=== PATIENT | female | born 1980 | race Caucasian/White ===

== ENCOUNTER 2016-08-26 00:42 | Emergency (ER) | payer MEDICAID ==
--- NOTE | 2016-08-26 01:13 | ED PDOC ---
Arrival/HPI - General Historian: Patient - History of Present Illness Time/Duration: < week (4 days) Symptom Onset: Gradual Symptom Course: Unchanged Activities at Onset: Rest, Light Context: Home - General Time Seen by Provider: 08/26/16 01:10 - History of Present Illness Narrative History of Present Illness (Text): 08/26/16 01:13 Angela Deras is a 36 year old female who presents to the Emergency department complaining of a persistent cough and cold-like symptoms for the past 4 days. Patient states she was seen by her PMD for similar complaints and placed on cough medicine and antibiotics, but denies any significant relief. Patient also reports associated intermittent fever. Patient denies any chest pain, shortness of breath, nausea, vomiting, diarrhea, urinary symptoms, back pain, neck pain, headache, dizziness, or any other complaints. (Carlos Ramos) Past Medical History - Provider Review Nursing Documentation Reviewed: Yes - Infectious Disease Hx of Infectious Diseases: None - Tetanus Immunization Tetanus Immunization: Unknown - Cardiac Hx Hypertension: Yes - Psychiatric Hx Depression: No Hx Emotional Abuse: No Hx Physical Abuse: No Hx Substance Use: No - Past Surgical History Past Surgical History: No Previous - Suicidal Assessment Feels Threatened In Home Enviroment: No Family/Social History - Physician Review Nursing Documentation Reviewed: Yes Family/Social History: No Known Family HX Hx Alcohol Use: No Hx Substance Use: No Hx Substance Use Treatment: No Allergies/Home Meds Allergies/Adverse Reactions: Allergies No Known Allergies Allergy (Verified 08/26/16 01:10) Home Medications: Home Meds Medication Instructions Recorded Confirmed Azithromycin [Zithromax] 250 mg PO DAILY 08/26/16 08/26/16 Guaifenesin [Mucinex ER] 600 mg PO Q12 08/26/16 08/26/16 Ibuprofen [Motrin Tab] 800 mg PO Q12 08/26/16 08/26/16 Loratadine [Allerclear] 10 mg PO DAILY 08/26/16 08/26/16 Review of Systems - Physician Review All systems were reviewed & negative as marked: Yes - Review of Systems Constitutional: Fevers Eyes: Normal ENT: Other (+cold-like symptoms) Respiratory: Cough Cardiovascular: Normal Gastrointestinal: Normal. absent: Abdominal Pain, Diarrhea, Vomiting Genitourinary Female: Normal. absent: Dysuria, Frequency, Hematuria, Urine Output Changes Musculoskeletal: Normal. absent: Back Pain, Neck Pain Skin: Normal. absent: Rash Neurological: Normal. absent: Headache, Dizziness Endocrine: Normal Hemo/Lymphatic: Normal Psychiatric: Normal Physical Exam Vital Signs Reviewed: Yes Temperature: Febrile Blood Pressure: Normal Pulse: Regular Respiratory Rate: Normal Appearance: Positive for: Well-Appearing, Non-Toxic, Comfortable Pain Distress: None Mental Status: Positive for: Alert and Oriented X 3 - Systems Exam Head: Present: Atraumatic, Normocephalic Pupils: Present: PERRL Extroacular Muscles: Present: EOMI Conjunctiva: Present: Normal Mouth: Present: Moist Mucous Membranes Neck: Present: Normal Range of Motion Respiratory/Chest: Present: Rhonchi. No: Respiratory Distress, Accessory Muscle Use Cardiovascular: Present: Regular Rate and Rhythm, Normal S1, S2. No: Murmurs Abdomen: Present: Normal Bowel Sounds. No: Tenderness, Distention, Peritoneal Signs Back: Present: Normal Inspection Upper Extremity: Present: Normal Inspection. No: Cyanosis, Edema Lower Extremity: Present: Normal Inspection. No: Edema Neurological: Present: GCS=15, CN II-XII Intact, Speech Normal Skin: Present: Warm, Dry, Normal Color. No: Rashes Psychiatric: Present: Alert, Oriented x 3, Normal Insight, Normal Concentration Vital Signs Temp Pulse Resp BP Pulse Ox 08/26/16 03:15 85 18 114/65 97 08/26/16 01:10 99.9 F H 118 H 20 158/100 H 96 Medical Decision Making - Lab Interpretations I have reviewed the lab results: Yes ED Course and Treatment: 08/26/16 17:42 Official chest xray show there is pneumonia, no antibiotic, spoke to the patient and she is not on the antibiotic, I will eRX levaquin 750mg po qd x 5 days which I explained to the patient to avoid gym or exercise for 7 days and stay hydrated as the side effect of the levaquin is achilles tendon rupture. Urine hcg negative. (Fam Stearns) 08/26/16 01:13 Impression: 36 year old female complaining of cough/cold-like symptoms x4 days. Differential Diagnosis include but are not limited to: bronchitis vs. URI Plan: -- Labs -- Urinalysis -- Duoneb -- Phenergan -- Reassess and disposition Progress Notes: 08/26/16 03:33 Reviewed radiology, Chest X-ray shows no active disease. 08/26/16 03:38 On re-evaluation, the patient feels better and is in no acute distress. I have discussed the results and plan with the patient, who expresses understanding. Patient in agreement with plan to discharged home. Patient is stable for discharge. Patient was instructed to follow up with physician/clinic in 1-2 days or return if symptoms worsen or new concerning symptoms arise. (Carlos Ramos) - Lab Interpretations Lab Results: 08/26/16 02:13 08/26/16 02:13 Lab Results 08/26/16 02:39: Urine Color Yellow, Urine Appearance Slight-cloudy, Urine pH 6.5 , Ur Specific [place] 1.010, Urine Protein Negative, Urine Glucose (UA) Negative , Urine Ketones Negative, Urine Blood Moderate H, Urine Nitrate Negative, Urine Bilirubin Negative, Urine Urobilinogen 0.2, Ur Leukocyte Esterase Negative, Urine RBC 1 - 3, Urine WBC 1 - 3, Ur Epithelial Cells 3 - 4, Urine Bacteria Few 08/26/16 02:13: Sodium 142, Potassium 3.2 L, Chloride 102, Carbon Dioxide 28, Anion Gap 15, BUN 6 L, Creatinine 0.7, Est GFR ( Amer) > 60, Est GFR (Non -Af Amer) > 60, Random Glucose 104, Calcium 8.4, Total Bilirubin 0.5, AST 58 H, ALT 95 H, Alkaline Phosphatase 112, Total Protein 8.1, Albumin 4.0, Globulin 4.1 , Albumin/Globulin Ratio 1.0 L 08/26/16 02:13: WBC 5.5 D, RBC 3.95, Hgb 9.5 L, Hct 29.9 L, MCV 75.7 L, MCH 24.1 L, MCHC 31.8, RDW 15.3 H, Plt Count 223, MPV 10.0, Gran % 57.0, Lymph % ( Auto) 31.2, [place] % (Auto) 10.0 H, Eos % (Auto) 1.6, Baso % (Auto) 0.2, Gran # 3.14, Lymph # 1.7, [place] # 0.6, Eos # 0.1, Baso # 0.01 - RAD Interpretation Radiology Orders: 08/26/16 02:57 CHEST TWO VIEWS (PA/LAT) [RAD] Stat - Medication Orders Current Medication Orders: Discontinued Medications Albuterol/Ipratropium (Duoneb 3 Mg/0.5 Mg (3 Ml) Ud) 3 ml IH STAT STA Stop: 08/26/16 01:17 Last Admin: 08/26/16 01:45 Dose: 3 ml Methylprednisolone (Solu-Medrol) 125 mg IVP ONCE ONE Stop: 08/26/16 02:59 Last Admin: 08/26/16 03:11 Dose: 125 mg Promethazine HCl/Codeine (Phenergan/Codeine Oral Syrup) 5 ml PO ONCE STA Stop: 08/26/16 01:17 Last Admin: 08/26/16 01:50 Dose: 5 ml - Scribe Statement The provider has reviewed the documentation as recorded by the Scribe - Scribe Statement Olga Babb (Cralos Ramos) Provider Attestation: All medical record entries made by the Scribe were at my direction and personally dictated by me. I have reviewed the chart and agree that the record accurately reflects my personal performance of the history, physical exam, medical decision making, and the department course for this patient. I have also personally directed, reviewed, and agree with the discharge instructions and disposition. (Carlos Ramos) Disposition/Present on Arrival - Present on Arrival Any Indicators Present on Arrival: No History of DVT/PE: No History of Uncontrolled Diabetes: No Urinary Catheter: No History Surgical Site Infection Following: None - Disposition Have Diagnosis and Disposition been Completed?: Yes Disposition Time: 03:39 - Disposition Diagnosis: Bronchitis, Pneumonia Disposition: HOME/ ROUTINE Condition: GOOD Discharge Instructions (ExitCare): Acute Bronchitis (ED) Prescriptions: Levofloxacin [Levaquin] 750 mg PO DAILY #5 tablet predniSONE [predniSONE Tab] 20 mg PO TID #15 tab Promethazine/Codeine [Codeine/Promethazine 10 MG/5 Ml-6.25 MG/5 Ml] 5 ml PO QID #200 ml
[2016-08-26 01:14] VITALS: TEMP 99.9
[2016-08-26 01:15] VITALS: BMI 26.5
[2016-08-26] MEDS ORDERED: Albuterol-Ipratrop 3 mg / 0.5 (3 ml) UD IH STA (01:16)
[2016-08-26] MEDS ORDERED: Promethazine/Cod 6.25mg-10mg/5ml Syr UD PO STA (01:16)
[2016-08-26 02:20] LABS: ADD MANUAL DIFF? NO
[2016-08-26 02:32] LABS: ALKALINE PHOSPHATASE 112 U/L (38-133); ALT/SGPT 95 U/L (7-56); AST/SGOT 58 U/L (15-39); BILIRUBIN,TOTAL 0.5 mg/dL (0.2-1.3); BLOOD UREA NITROGEN 6 mg/dL (7-21); CALCIUM 8.4 mg/dL (8.4-10.5); CARBON DIOXIDE 28 mmol/L (21-33); CHLORIDE 102 mmol/L (98-107); GFR AFRICAN-AMERICAN > 60; GLUCOSE,RANDOM 104 mg/dL (70-110); POTASSIUM 3.2 mmol/L (3.6-5.0); SODIUM 142 mmol/L (132-148); TOTAL PROTEIN 8.1 g/dL (5.8-8.3)
[2016-08-26 02:41] LABS: BASO # 0.01 K/mm3 (0.0-2.0); BASO % 0.2 % (0.0-3.0); EOS # 0.1 (0.0-0.7); EOS % 1.6 % (1.5-5.0); GRAN # 3.14 (1.4-6.5); HEMATOCRIT 29.9 % (36.0-48.0); LYMPH # 1.7 (1.2-3.4); LYMPH % 31.2 % (22.0-35.0); MEAN CELL VOLUME 75.7 fL (80.0-105.0); MEAN CORPUSCULAR HEMOGLOBIN 24.1 pg (25.0-35.0); MEAN CORPUSCULAR HGB CONC 31.8 g/dl (31.0-37.0); MONO # 0.6 (0.1-0.6); PLATELET COUNT 223 10^3/uL (120.0-450.0); RED CELL DISTRIBUTION WIDTH 15.3 % (11.5-14.5); WHITE BLOOD COUNT 5.5 10^3/ul (4.5-11.0)
[2016-08-26 02:58] LABS: PH,URINE 6.5 (4.7-8.0); URINE BILIRUBIN NEGATIVE (NEGATIVE); URINE BLOOD MODERATE (NEGATIVE); URINE GLUCOSE (UA) NEGATIVE (NEGATIVE); URINE KETONE NEGATIVE (NEGATIVE); URINE LEUKOCYTE ESTERASE NEGATIVE Leu/uL (NEGATIVE); URINE PROTEIN NEGATIVE mg/dL (<30 mg/dL); URINE UROBILINOGEN 0.2 E.U./dL (<1 E.U./dL)
[2016-08-26 03:02] LABS: URINE COLOR YELLOW (YELLOW)
[2016-08-26 03:03] LABS: URINE APPEARANCE SLIGHT-CLOUDY (CLEAR)
[2016-08-26 03:07] LABS: URINE BACTERIA FEW (NEG)
[2016-08-26 03:36] VITALS: BP 114/65; PULSE 85; RESP 18; O2SAT 97
--- NOTE | 2016-08-26 08:41 | RAD ---
HISTORY: cough COMPARISON: Chest x-ray performed 06/30/14 TECHNIQUE: Chest PA and lateral FINDINGS: LUNGS: Retrocardiac opacity. Please note that chest x-ray has limited sensitivity for the detection of pulmonary masses. PLEURA: No significant pleural effusion identified. No definite pneumothorax . CARDIOVASCULAR: The cardiomediastinal silhouette appears within normal limits of size. OSSEOUS STRUCTURES: No acute osseous abnormality identified. VISUALIZED UPPER ABDOMEN: Unremarkable. OTHER FINDINGS: None. IMPRESSION: Retrocardiac opacity may reflect pneumonia. Recommend follow-up to resolution or CT of the chest if indicated. Study is been marked for PA review.
== END 2016-08-26 03:45 | disposition home or self-care (01) ==
LOC: ED 00:42
DX: J20.9 Acute bronchitis, unspecified (principal); J18.9 Pneumonia, unspecified organism
CPT/HCPCS: 71020; 80053; 81001; 85025; 96374; 99283; J2930

== ENCOUNTER 2016-08-31 15:00 | Emergency (ER) | payer MEDICAID ==
[2016-08-31 15:01] VITALS: BMI 26.5
[2016-08-31 15:14] VITALS: BP 136/84; PULSE 88; O2SAT 98
[2016-08-31] MEDS ORDERED: Sodium Chloride 0.9% 1,000 ML IV STA (15:59)
[2016-08-31] MEDS ORDERED: Iohexol 350 MG/100 ML VIAL ONE (16:07)
--- NOTE | 2016-08-31 16:18 | ED PDOC ---
Arrival/HPI <Negrito Escobedo - Last Filed: 08/31/16 18:48> - General Historian: Patient <Celine Talavera - Last Filed: 08/31/16 19:33> - General Chief Complaint: Cough, Cold, Congestion Time Seen by Provider: 08/31/16 15:09 - History of Present Illness Narrative History of Present Illness (Text): 08/31/16 16:00 36yr old female presents today with 2 week history of cough and worsening SOB. pt states she was seen by her PMD and was started on zithromax. pt was then seen in er and had xray that showed pneumonia and patient was started on levaquin 750mg x 5 days. pt presents today with continued cough, shortness of breath, and subjective fevers at home. pt states she has been vomiting after coughing. denies abdominal pain. pt denies headaches, dizziness. denies sore throat. no chest pain. pt states cough is dry. no sick contacts. no other complaints. (Celine Talavera) Past Medical History - Provider Review Nursing Documentation Reviewed: Yes - Travel History Have you recently traveled outside [place] w/in the past 3 mons?: No - Infectious Disease Hx of Infectious Diseases: None - Tetanus Immunization Tetanus Immunization: Unknown - Reproductive Menopause: No - Cardiac Hx Hypertension: Yes - Pulmonary Hx Respiratory Disorders: No - Neurological Hx Neurological Disorder: No - HEENT Hx HEENT Disorder: No - Renal Hx Renal Disorder: No - Endocrine/Metabolic Hx Endocrine Disorders: No - Hematological/Oncological Hx Blood Disorders: No - Integumentary Hx Dermatological Disorder: No - Musculoskeletal/Rheumatological Hx Musculoskeletal Disorders: No - Gastrointestinal Hx Gastrointestinal Disorders: No - Genitourinary/Gynecological Hx Genitourinary Disorders: No - Psychiatric Hx Depression: No Hx Emotional Abuse: No Hx Physical Abuse: No Hx Substance Use: No - Past Surgical History Past Surgical History: No Previous - Anesthesia Hx Anesthesia: No - Suicidal Assessment Feels Threatened In Home Enviroment: No <Celine Talavera - Last Filed: 08/31/16 19:33> Family/Social History - Physician Review Nursing Documentation Reviewed: Yes Family/Social History: Unknown Family HX Smoking Status: Never Smoked Hx Alcohol Use: No Hx Substance Use: No Hx Substance Use Treatment: No <Celine Talavera - Last Filed: 08/31/16 19:33> Allergies/Home Meds <Negrito Escobedo - Last Filed: 08/31/16 18:48> <Celine Talavera - Last Filed: 08/31/16 19:33> Allergies/Adverse Reactions: Allergies No Known Allergies Allergy (Verified 08/26/16 01:10) Review of Systems - Review of Systems Constitutional: Fevers. absent: Fatigue ENT: absent: Sore Throat, Sinus Congestion Respiratory: SOB, Cough Cardiovascular: absent: Chest Pain, Palpitations Gastrointestinal: Nausea, Vomiting. absent: Abdominal Pain, Constipation, Diarrhea Genitourinary Female: absent: Dysuria Musculoskeletal: absent: Arthralgias Skin: absent: Rash, Pruritis Neurological: absent: Headache, Dizziness Psychiatric: absent: Anxiety, Depression <Celine Talavera - Last Filed: 08/31/16 19:33> Physical Exam Vital Signs Reviewed: Yes Temperature: Afebrile Blood Pressure: Normal Pulse: Regular Respiratory Rate: Normal Appearance: Positive for: Well-Appearing, Non-Toxic, Comfortable Pain Distress: None Mental Status: Positive for: Alert and Oriented X 3 - Systems Exam Head: Present: Atraumatic Extroacular Muscles: Present: EOMI Conjunctiva: Present: Normal Ears: Present: Normal, NORMAL TM Mouth: Present: Moist Mucous Membranes Pharnyx: Present: Normal. No: ERYTHEMA, EXUDATE, TONSILS ENLARGED, Peritonsilar Swelling, Uvular Deviation, Muffled/Hoarse Voice, [place], Soft Palate/Uvular Edema Nose (External): Present: Atraumatic Nose (Internal): Present: Normal Inspection Neck: Present: Normal Range of Motion, Trachea Midline Respiratory/Chest: Present: Clear to Auscultation, Good Air Exchange. No: Respiratory Distress, Accessory Muscle Use, Wheezes, Retracting, Tachypneic Cardiovascular: Present: Regular Rate and Rhythm, Normal S1, S2. No: Murmurs Abdomen: No: Tenderness Upper Extremity: Present: Normal ROM Lower Extremity: Present: Normal ROM Neurological: Present: GCS=15, Speech Normal Skin: Present: Warm, Dry, Normal Color. No: Rashes Psychiatric: Present: Alert, Oriented x 3 <Celine Talavera - Last Filed: 08/31/16 19:33> Vital Signs Temp Pulse Resp BP Pulse Ox 08/31/16 17:10 99.0 F 88 16 98 08/31/16 15:08 99 F 88 18 136/84 98 Medical Decision Making <Negrito Escobedo - Last Filed: 08/31/16 18:48> <Celine Talavera - Last Filed: 08/31/16 19:33> ED Course and Treatment: 08/31/16 18:49 Patient with noted history is well-appearing with unremarkable vitals and exam. CTA of the chest is negative. Elevated WBC is likely due to prednisone - also on levaquin - feels better with pepcid - has a pmd - will d/c. (Negrito Escobedo ) 08/31/16 16:19 36yr old female with 2 week history of cough. completed both zithromax and levaquin. had cxr which showed possible PNA. presents with worsening symptoms. cbc wbc; 17.5 cmp: wnl blood cultures. ct chest:FINDINGS: PULMONARY ARTERIES: Unremarkable. No central pulmonary embolism. AORTA: No acute findings. No thoracic aortic aneurysm. LUNGS: Small bibasilar opacities likely atelectasis. . No nodule, mass or pulmonary consolidation. PLEURAL SPACES: Unremarkable. No effusion or pneuomothorax. HEART: Unremarkable. No cardiomegaly. No significant pericardial effusion. LYMPH NODES: No lymphadenopathy. BONES, CHEST WALL: Unremarkable. No fracture or destructive lesion OTHER FINDINGS: Unremarkable. IMPRESSION: Suboptimal study due to patient's motion. No evidence of central pulmonary embolus. No evidence of pneumonia or lung mass. Small bibasilar atelectasis. 08/31/16 18:24 pt given pepcid for nausea/ reflux possible from prednisone. pt seen and evaluated by dr. escobedo. vitals stable. pt in no distress. ct shows no PNA. will d/c home. add pepcid; f/ u with pmd and file clerk data entry. pt feeling better; lungs ct bilaterally; all results discussed in depth with patient; pt is to use nebulizer at home and f/u with pmd. she was advised of elevated wbc count which may be related to prednisone usage. she was advised to have blood test checked again if symptoms still remain unchanged. Patient verbalizes understanding of discharge instructions and need for immediate followup. all aspects of this case were discussed the attending of record. impression; cough, bronchitis pepcid daily increase fluids nebulizer 3 times daily Follow-up with primary care physician within the next 2 days Follow up with the file clerk data entry return immediately if symptoms worsen,persist or if new symptoms develop. 08/31/16 19:29 (Celine Talavera) - Lab Interpretations Lab Results: 08/31/16 16:14 08/31/16 16:14 Lab Results 08/31/16 16:14: WBC 17.5 H D, RBC 4.30, Hgb 10.3 L, Hct 32.4 L, MCV 75.3 L, MCH 24.0 L, MCHC 31.8, RDW 15.4 H, Plt Count 330, MPV 9.8, Gran % 84.4 H, Lymph % ( Auto) 10.1 L, [place] % (Auto) 5.3, Eos % (Auto) 0.1 L, Baso % (Auto) 0.1, Gran # 14.76 H, Lymph # 1.8, [place] # 0.9 H, Eos # 0.0, Baso # 0.01 08/31/16 16:14: Sodium 136, Potassium 3.8, Chloride 96 L, Carbon Dioxide 28, Anion Gap 16, BUN 23 H, Creatinine 0.9, Est GFR ( Amer) > 60, Est GFR ( Non-Af Amer) > 60, Random Glucose 131 H, Calcium 8.8, Total Bilirubin 0.5, AST 36, ALT 84 H, Alkaline Phosphatase 80, Total Protein 8.0, Albumin 3.8, Globulin 4.2, Albumin/Globulin Ratio 0.9 L - RAD Interpretation Radiology Orders: 08/31/16 15:59 ANGIO CHEST PE PROTOCOL [CT] Stat - Medication Orders Current Medication Orders: Discontinued Medications Famotidine (Pepcid) 20 mg IVP STAT STA Stop: 08/31/16 18:17 Last Admin: 08/31/16 18:38 Dose: 20 mg Sodium Chloride (Sodium Chloride 0.9%) 1,000 mls @ 999 mls/hr IV .Q1H1M STA Stop: 08/31/16 16:59 Last Admin: 08/31/16 16:27 Dose: 999 mls/hr Iohexol (Omnipaque 350 100 Ml) Confirm Administered Dose 350 mg .ROUTE .STK-MED ONE Stop: 08/31/16 16:08 Levalbuterol HCl (Xopenex) 0.63 mg IH ONCE STA Stop: 08/31/16 18:31 Last Admin: 08/31/16 18:45 Dose: 0.63 mg - PA / [facility] DIRECTOR / Resident Statement ARANZA has reviewed & agrees with the documentation as recorded. ARANZA has examined the patient and agrees with the treatment plan. <Negrito Escobedo - Last Filed: 08/31/16 18:48> Disposition/Present on Arrival <Negrito Escobedo - Last Filed: 08/31/16 18:48> - Present on Arrival Any Indicators Present on Arrival: No History of DVT/PE: No History of Uncontrolled Diabetes: No Urinary Catheter: No History of Decub. Ulcer: No History Surgical Site Infection Following: None - Disposition Have Diagnosis and Disposition been Completed?: Yes Disposition Time: 19:31 Patient Plan: Discharge <Celine Talavera - Last Filed: 08/31/16 19:33> - Disposition Diagnosis: Bronchitis Disposition: HOME/ ROUTINE Condition: GOOD Discharge Instructions (ExitCare): Acute Bronchitis (ED) Additional Instructions: pepcid daily increase fluids nebulizer 3 times daily Follow-up with primary care physician within the next 2 days Follow up with the file clerk data entry return immediately if symptoms worsen,persist or if new symptoms develop Prescriptions: Famotidine [Pepcid] 20 mg PO DAILY #30 tab Referrals: Andrews Sloan MD [Staff Provider] - Follow up with primary Deondre Hi MD [Staff Provider] - Follow up with primary Sanjiv Lopez MD [Staff Provider] - Follow up with primary
[2016-08-31 16:23] LABS: ADD MANUAL DIFF? NO
[2016-08-31 16:29] LABS: BASO # 0.01 K/mm3 (0.0-2.0); BASO % 0.1 % (0.0-3.0); EOS % 0.1 % (1.5-5.0); GRAN # 14.76 (1.4-6.5); GRAN % 84.4 % (50.0-68.0); HEMATOCRIT 32.4 % (36.0-48.0); LYMPH # 1.8 (1.2-3.4); LYMPH % 10.1 % (22.0-35.0); MEAN CELL VOLUME 75.3 fL (80.0-105.0); MEAN CORPUSCULAR HGB CONC 31.8 g/dl (31.0-37.0); MEAN PLATELET VOLUME 9.8 fl (7.0-11.0); MONO # 0.9 (0.1-0.6); MONO % 5.3 % (1.0-6.0); PLATELET COUNT 330 10^3/uL (120.0-450.0); RED CELL DISTRIBUTION WIDTH 15.4 % (11.5-14.5); WHITE BLOOD COUNT 17.5 10^3/ul (4.5-11.0)
[2016-08-31 16:42] LABS: ALB/GLOB RATIO 0.9 (1.1-1.8); ALKALINE PHOSPHATASE 80 U/L (38-133); ALT/SGPT 84 U/L (7-56); AST/SGOT 36 U/L (15-39); BILIRUBIN,TOTAL 0.5 mg/dL (0.2-1.3); BLOOD UREA NITROGEN 23 mg/dL (7-21); CALCIUM 8.8 mg/dL (8.4-10.5); CARBON DIOXIDE 28 mmol/L (21-33); CHLORIDE 96 mmol/L (98-107); GFR AFRICAN-AMERICAN > 60; GLUCOSE,RANDOM 131 mg/dL (70-110); POTASSIUM 3.8 mmol/L (3.6-5.0); SODIUM 136 mmol/L (132-148)
[2016-08-31 17:10] VITALS: RESP 16; TEMP 99
--- NOTE | 2016-08-31 17:37 | CT ---
PROCEDURE: CT Chest with contrast (Pulmonary Angiogram) HISTORY: cough/sob COMPARISON: None available. TECHNIQUE: Axial computed tomography images were obtained of the chest in the pulmonary arterial phase of enhancement. Coronal and sagittal reformatted images were created and reviewed. Intravenous contrast dose: 100 mL of Omnipaque 300 Radiation dose: Total exam DLP = 322.96 mGy-cm. This CT exam was performed using one or more of the following dose reduction techniques: Automated exposure control, adjustment of the mA and/or kV according to patient size, and/or use of iterative reconstruction technique. FINDINGS: PULMONARY ARTERIES: Unremarkable. No central pulmonary embolism. AORTA: No acute findings. No thoracic aortic aneurysm. LUNGS: Small bibasilar opacities likely atelectasis. . No nodule, mass or pulmonary consolidation. PLEURAL SPACES: Unremarkable. No effusion or pneuomothorax. HEART: Unremarkable. No cardiomegaly. No significant pericardial effusion. LYMPH NODES: No lymphadenopathy. BONES, CHEST WALL: Unremarkable. No fracture or destructive lesion OTHER FINDINGS: Unremarkable. IMPRESSION: Suboptimal study due to patient's motion. No evidence of central pulmonary embolus. No evidence of pneumonia or lung mass. Small bibasilar atelectasis.
[2016-08-31] MEDS ORDERED: Levalbuterol 0.63 MG/3 ML Inhal Soln UD IH STA (18:30)
== END 2016-08-31 19:56 | disposition home or self-care (01) ==
LOC: ED 15:00
DX: J40 Bronchitis, not specified as acute or chronic (principal)
CPT/HCPCS: 71275; 80053; 85025; 87040; 96374; 99283; J7040; Q9967

== ENCOUNTER 2017-02-20 23:03 | Emergency (ER) | payer MEDICAID ==
[2017-02-20 23:03] VITALS: BMI 26.5
[2017-02-20 23:27] VITALS: RESP 16; TEMP 98
--- NOTE | 2017-02-21 00:23 | ED PDOC ---
Arrival/HPI - General Chief Complaint: High Blood Pressure Time Seen by Provider: 02/20/17 23:37 Historian: Patient - History of Present Illness Narrative History of Present Illness (Text): 02/21/17 23:40 Angela Deras is a 36 year old female, whose past medical history includes ? hypertension, who presents to the emergency department complaining of headache discomfort and nausea for a few hours. Patient states that she was having some discomfort to her neck and top of her head with associated nausea earlier today. Patient states that she was diagnosed with mild elevated blood pressure about a month or so ago and was prescribed medication recently discontinued.Patient denies any abdominal pain, chest pain, shortness of breath , back pain, fever, chills, or any other complaints at this time. Time/Duration: 4-6 hours Symptom Onset: Gradual Symptom Course: Unchanged Activities at Onset: Light Context: Home Past Medical History - Provider Review Nursing Documentation Reviewed: Yes - Infectious Disease Hx of Infectious Diseases: None - Tetanus Immunization Tetanus Immunization: Unknown - Reproductive Menopause: No - Cardiac Hx Hypertension: Yes - Pulmonary Hx Respiratory Disorders: No - Neurological Hx Neurological Disorder: No - HEENT Hx HEENT Disorder: No - Renal Hx Renal Disorder: No - Endocrine/Metabolic Hx Endocrine Disorders: No - Hematological/Oncological Hx Blood Disorders: No - Integumentary Hx Dermatological Disorder: No - Musculoskeletal/Rheumatological Hx Musculoskeletal Disorders: No - Gastrointestinal Hx Gastrointestinal Disorders: No - Genitourinary/Gynecological Hx Genitourinary Disorders: No - Psychiatric Hx Depression: No Hx Emotional Abuse: No Hx Physical Abuse: No Hx Substance Use: No - Past Surgical History Past Surgical History: No Previous - Anesthesia Hx Anesthesia: No - Suicidal Assessment Feels Threatened In Home Enviroment: No Family/Social History - Physician Review Nursing Documentation Reviewed: Yes Family/Social History: No Known Family HX Smoking Status: Never Smoked Hx Alcohol Use: No Hx Substance Use: No Hx Substance Use Treatment: No Allergies/Home Meds Allergies/Adverse Reactions: Allergies No Known Allergies Allergy (Verified 08/26/16 01:10) Review of Systems - Physician Review All systems were reviewed & negative as marked: Yes - Review of Systems Constitutional: absent: Fevers, Night Sweats Eyes: absent: Vision Changes ENT: absent: Hearing Changes Respiratory: absent: SOB Cardiovascular: absent: Chest Pain Gastrointestinal: Nausea Genitourinary Female: absent: Dysuria Musculoskeletal: absent: Arthralgias Skin: absent: Rash, Pruritis Neurological: Headache Endocrine: absent: Diaphoresis Hemo/Lymphatic: absent: Adenopathy Psychiatric: absent: Depression Physical Exam Vital Signs Reviewed: Yes Vital Signs Temp Pulse Resp BP Pulse Ox 02/21/17 01:03 77 16 133/76 100 02/20/17 23:03 98.0 F 93 H 16 144/80 100 Temperature: Afebrile Blood Pressure: Normal Pulse: Tachycardic Respiratory Rate: Normal Appearance: Positive for: Well-Appearing, Non-Toxic, Comfortable Pain Distress: None Mental Status: Positive for: Alert and Oriented X 3 - Systems Exam Head: Present: Atraumatic, Normocephalic Pupils: Present: PERRL Extroacular Muscles: Present: EOMI Conjunctiva: Present: Normal Ears: Present: NORMAL TM Mouth: Present: Moist Mucous Membranes Pharnyx: Present: Normal Neck: Present: Normal Range of Motion. No: Meningeal Signs Respiratory/Chest: Present: Clear to Auscultation, Good Air Exchange. No: Respiratory Distress, Accessory Muscle Use Cardiovascular: Present: Regular Rate and Rhythm, Normal S1, S2. No: Murmurs Abdomen: Present: Normal Bowel Sounds. No: Tenderness, Distention, Peritoneal Signs Back: Present: Normal Inspection Upper Extremity: Present: Normal Inspection. No: Cyanosis, Edema Lower Extremity: Present: Normal Inspection. No: Edema Neurological: Present: GCS=15, CN II-XII Intact, Speech Normal, Motor Func Grossly Intact, Normal Sensory Function Skin: Present: Warm, Dry, Normal Color. No: Rashes Psychiatric: Present: Alert, Oriented x 3, Normal Insight, Normal Concentration Medical Decision Making ED Course and Treatment: 02/21/17 23:40 Impression: 36 year old female complaining of headache discomfort and nausea for a few hours. Differential Diagnosis included but are not limited to: Plan: -- Head CT w/o contrast -- Zofran -- Reassess and disposition Prior Visits: Notes and results from previous visits were reviewed. Patient last seen in the ED on 08/31/16 for cough and worsening SOB for a few days. Patient was discharged home. Progress Notes: 02/21/17 01:10 CT Head Without Intravenous Contrast: Creator : NEYMAR DEL ROSARIO FINDINGS: Brain: There is mild prominence of sulci, gyri and ventricles. There is no midline shift. There are no intra-axial or extra-axial mass lesions or areas of hemorrhage. There are no abnormal fluid collections. Flores-white differentiation is maintained. Ventricles: See above. Bones: Cranial vault is intact. Soft tissues: unremarkable Sinuses: There is no acute sinusitis. Ears and mastoids: Middle ears and mastoids are unremarkableThere is streak artifact from an earring Orbits: Orbital contents are unremarkable. IMPRESSION: No acute intracranial abnormality - Lab Interpretations Lab Results: Lab Results 02/20/17 23:57: Urine HCG, Qual Negative I have reviewed the lab results: Yes - RAD Interpretation Radiology Orders: 02/20/17 23:44 HEAD W/O CONTRAST [CT] Stat - Medication Orders Current Medication Orders: Discontinued Medications Ondansetron HCl (Zofran Odt) 4 mg PO STAT STA Stop: 02/20/17 23:44 Last Admin: 02/20/17 23:59 Dose: 4 mg - Scribe Statement The provider has reviewed the documentation as recorded by the Elizabeth Diez Provider Scribe Attestation: All medical record entries made by the Scribe were at my direction and personally dictated by me. I have reviewed the chart and agree that the record accurately reflects my personal performance of the history, physical exam, medical decision making, and the department course for this patient. I have also personally directed, reviewed, and agree with the discharge instructions and disposition. Disposition/Present on Arrival - Present on Arrival Any Indicators Present on Arrival: No History of DVT/PE: No History of Uncontrolled Diabetes: No Urinary Catheter: No History of Decub. Ulcer: No History Surgical Site Infection Following: None - Disposition Have Diagnosis and Disposition been Completed?: Yes Diagnosis: Headache Disposition: HOME/ ROUTINE Disposition Time: 02:14 Patient Plan: Discharge Condition: GOOD Discharge Instructions (ExitCare): Acute Headache (ED) Additional Instructions: Take medication as prescribed/follow up with your doctor this week Prescriptions: Acetaminophen/Butalbital/Caf [Fioricet] 1 tab PO Q6 PRN #16 tab PRN Reason: Headache Forms: [facility] (Yoruba)
--- NOTE | 2017-02-21 01:07 | CT ---
EXAM: CT Head Without Intravenous Contrast EXAM DATE/TIME: 02/20/2017 11:44 PM CLINICAL HISTORY: 36 years old, female; Pain; Headache TECHNIQUE: Axial computed tomography images of the head/brain without intravenous contrast. All CT scans at this facility use one or more dose reduction techniques, viz.: automated exposure control; ma/kV adjustment per patient size (including targeted exams where dose is matched to indication; i.e. head); or iterative reconstruction technique. COMPARISON: There are no prior studies for comparison. FINDINGS: Brain: There is mild prominence of sulci, gyri and ventricles. There is no midline shift. There are no intra-axial or extra-axial mass lesions or areas of hemorrhage. There are no abnormal fluid collections. Flores-white differentiation is maintained. Ventricles: See above. Bones: Cranial vault is intact. Soft tissues: unremarkable Sinuses: There is no acute sinusitis. Ears and mastoids: Middle ears and mastoids are unremarkableThere is streak artifact from an earring Orbits: Orbital contents are unremarkable. IMPRESSION: No acute intracranial abnormality
[2017-02-21 02:33] VITALS: BP 135/77; PULSE 75; O2SAT 99
== END 2017-02-21 02:32 | disposition home or self-care (01) ==
LOC: ED 23:03
DX: R51 Headache (principal); I10 Essential (primary) hypertension

== ENCOUNTER 2017-12-20 12:36 | Emergency (ER) | payer MEDICAID ==
[2017-12-20 12:37] VITALS: BMI 26.5
[2017-12-20 12:44] VITALS: TEMP 98.5; O2SAT 99
--- NOTE | 2017-12-20 13:15 | ED PDOC ---
Arrival/HPI - History of Present Illness Time/Duration: < week Symptom Onset: Gradual Symptom Course: Unchanged Quality: Pressure, Other (sharp) Activities at Onset: Rest <Preston Pedroza - Last Filed: 12/20/17 14:08> <Harshil Mohr - Last Filed: 12/20/17 18:02> - General Chief Complaint: Chest Pain Time Seen by Provider: 12/20/17 12:39 - History of Present Illness Narrative History of Present Illness (Text): 12/20/17 13:12 PGY-[address] Mohr Miss Deras is a 37 year old female with PMHx HTN, GERD who presents with R sided parasternal chest pain. The patient states she noticed chest pain yesterday that hurts when she takes a deep breath or coughs which feels sharp and pressure-like. She ignored the pain yesterday and presented to the ER since pain persisted. Patient tried taking omeprazole at 7am this morning with no relief. She has had symptoms of GERD in the past and this pain feels different from any reflux she has had. Pain not worsened by any foods. Pt does not smoke, does not take OCPs, denies recent history of travel or recent hospitalizations. She denies shortness of breath, cough, rhinorrhea, nasal congestion, fevers, dizziness, headache, leg pain or leg swelling. Denies heavy lifting or sick contacts. (Preston Pedroza) Past Medical History - Provider Review Nursing Documentation Reviewed: Yes - Infectious Disease Hx of Infectious Diseases: None - Tetanus Immunization Tetanus Immunization: Unknown - Cardiac Hx Hypertension: Yes - Pulmonary Hx Respiratory Disorders: No - Neurological Hx Neurological Disorder: No - HEENT Hx HEENT Disorder: No - Renal Hx Renal Disorder: No - Endocrine/Metabolic Hx Endocrine Disorders: No - Hematological/Oncological Hx Blood Disorders: No - Integumentary Hx Dermatological Disorder: No - Musculoskeletal/Rheumatological Hx Musculoskeletal Disorders: No - Gastrointestinal Hx Gastritis: Yes Hx Gastroesophageal Reflux: Yes - Genitourinary/Gynecological Hx Genitourinary Disorders: No - Psychiatric Hx Depression: No Hx Emotional Abuse: No Hx Physical Abuse: No Hx Substance Use: No - Past Surgical History Past Surgical History: No Previous - Anesthesia Hx Anesthesia: No - Suicidal Assessment Feels Threatened In Home Enviroment: No <Preston Pedroza - Last Filed: 12/20/17 14:08> Family/Social History - Physician Review Nursing Documentation Reviewed: Yes Family/Social History: Unknown Family HX Smoking Status: Never Smoked Hx Alcohol Use: No Hx Substance Use: No Hx Substance Use Treatment: No <Preston Pedroza - Last Filed: 12/20/17 14:08> Allergies/Home Meds <Preston Pedroza - Last Filed: 12/20/17 14:08> <Harshil Mohr - Last Filed: 12/20/17 18:02> Allergies/Adverse Reactions: Allergies No Known Allergies Allergy (Verified 08/26/16 01:10) Home Medications: Home Meds Medication Instructions Recorded Confirmed No Known Home Med 12/20/17 12/20/17 Review of Systems - Physician Review All systems were reviewed & negative as marked: Yes - Review of Systems Constitutional: Normal. absent: Fatigue, Fevers Eyes: Normal. absent: Vision Changes, Photophobia ENT: Normal. absent: Sore Throat, Rhinorrhea, Sinus Congestion Respiratory: Normal. absent: SOB, Cough, Wheezing Cardiovascular: Chest Pain. absent: Palpitations, Calf Pain, TRINIDAD Gastrointestinal: Normal. absent: Abdominal Pain, Constipation, Diarrhea, Nausea, Vomiting Genitourinary Female: Normal. absent: Dysuria, Hematuria Musculoskeletal: Other (+R parasternal chest pain). absent: Back Pain, Neck Pain Skin: Normal. absent: Rash, Pruritis Neurological: Normal. absent: Headache, Dizziness <Preston Pedroza - Last Filed: 12/20/17 14:08> Physical Exam Vital Signs Reviewed: Yes Temperature: Afebrile Blood Pressure: Normal Pulse: Regular Respiratory Rate: Normal Appearance: Positive for: Well-Appearing, Non-Toxic Pain Distress: Mild Mental Status: Positive for: Alert and Oriented X 3 - Systems Exam Head: Present: Atraumatic, Normocephalic Pupils: Present: PERRL Extroacular Muscles: Present: EOMI Conjunctiva: Present: Normal Mouth: Present: Moist Mucous Membranes, Normal Tounge, Normal Teeth Pharnyx: Present: Normal. No: ERYTHEMA, EXUDATE Nose (External): Present: Atraumatic. No: Abrasion, Contusion Neck: Present: Normal Range of Motion. No: JVD Respiratory/Chest: Present: Clear to Auscultation, Good Air Exchange, Other (+ Point tenderness reproducible with palpation on upper R parasternal border). No : Accessory Muscle Use, Wheezes, Rhonchi Cardiovascular: Present: Regular Rate and Rhythm, Normal S1, S2, Peripheal Pulses Present. No: Murmurs Abdomen: Present: Normal Bowel Sounds. No: Tenderness, Distention, Peritoneal Signs, Rebound, Guarding Upper Extremity: Present: Normal Inspection, NORMAL PULSES. No: Cyanosis, Edema , Tenderness, Swelling Lower Extremity: Present: Normal Inspection, NORMAL PULSES. No: Edema, CALF TENDERNESS, Cyanosis Neurological: Present: GCS=15, CN II-XII Intact Skin: Present: Warm, Dry, Normal Color. No: Rashes Psychiatric: Present: Alert, Oriented x 3 <Preston Pedroza - Last Filed: 12/20/17 14:08> Vital Signs Temp Pulse Resp BP Pulse Ox 12/20/17 14:05 89 17 134/87 99 12/20/17 12:45 98.5 F 92 H 18 142/90 99 12/20/17 12:44 98.5 F 92 H 18 142/90 99 Medical Decision Making - RAD Interpretation Expansion Joint Finisher: Radiologist <Preston Pedroza - Last Filed: 12/20/17 14:08> <Harshil Mohr - Last Filed: 12/20/17 18:02> ED Course and Treatment: 12/20/17 13:38 1) Chest pain, suspect Costochondritis rule out PE * CXR portable * EKG * PERC negative (Preston Pedroza) 12/20/17 18:00 37 year old female presents to the Emergency Department for right sided chest pain. In agreement with resident note, which includes further HPI details. Patient was seen and evaluated with resident, came up with plan and treatment together. (Harshil Mohr) - RAD Interpretation Narrative RAD Interpretations (Text): 12/20/17 14:08 CXR - No evidence of active pulmonary disease (Preston Pedroza) Radiology Orders: 12/20/17 13:15 CHEST PORTABLE [RAD] Stat - EKG Interpretation EKG Interpretation (Text): 12/20/17 13:41 Normal sinus rhythm, No ST or T changes, normal EKG (Preston Pedroza) - Medication Orders Current Medication Orders: Discontinued Medications Ibuprofen (Motrin Tab) 400 mg PO STAT STA Stop: 12/20/17 13:52 Last Admin: 12/20/17 14:05 Dose: <Preston Pedroza - Last Filed: 12/20/17 14:08> - PA / DESIGN TECHNOLOGY PROFESSOR / Resident Statement / has reviewed & agrees with the documentation as recorded. MD/DO has examined the patient and agrees with the treatment plan. - Scribe Statement The provider has reviewed the documentation as recorded by the Scribe <Harshil Mohr - Last Filed: 12/20/17 18:02> - Scribe Statement Boone Kelly. All medical record entries made by the Scribe were at my direction and personally dictated by me. I have reviewed the chart and agree that the record accurately reflects my personal performance of the history, physical exam, medical decision making, and the department course for this patient. I have also personally directed, reviewed, and agree with the discharge instructions and disposition. (Harshil Mohr) Disposition/Present on Arrival - Present on Arrival Any Indicators Present on Arrival: No History of DVT/PE: No History of Uncontrolled Diabetes: No Urinary Catheter: No History of Decub. Ulcer: No History Surgical Site Infection Following: None - Disposition Have Diagnosis and Disposition been Completed?: Yes Disposition Time: 14:10 Patient Plan: Discharge <Preston Pedroza - Last Filed: 12/20/17 14:08> <Harshil Mohr - Last Filed: 12/20/17 18:02> - Disposition Diagnosis: Costochondral chest pain Disposition: HOME/ ROUTINE Condition: IMPROVED Discharge Instructions (ExitCare): Chest Pain (ED) Forms: [facility] (Spanish)
--- NOTE | 2017-12-20 13:57 | RAD ---
Date of service: 12/20/2017 HISTORY: Chest pain COMPARISON: PacsNo prior. FINDINGS: LUNGS: The lungs are well inflated and clear. PLEURA: No significant pleural effusion identified, no pneumothorax apparent. CARDIOVASCULAR: Normal. OSSEOUS STRUCTURES: No significant abnormalities. VISUALIZED UPPER ABDOMEN: Normal. OTHER FINDINGS: None. IMPRESSION: No active pulmonary disease.
[2017-12-20 14:22] VITALS: BP 134/87; PULSE 89; RESP 17
--- NOTE | 2017-12-20 20:56 | CARD ---
APPROVED REPORT Date of service: 12/20/2017 EKG Measurement Heart [id number] <Conclusion> Normal sinus rhythm Normal ECG
== END 2017-12-20 14:05 | disposition home or self-care (01) ==
LOC: ED 12:36
DX: R07.89 Other chest pain (principal); I10 Essential (primary) hypertension

== ENCOUNTER 2018-02-28 18:19 | Emergency (ER) | payer MEDICAID ==
[2018-02-28 18:19] VITALS: BMI 26.5
[2018-02-28 18:50] VITALS: RESP 18; O2SAT 100
[2018-02-28] MEDS ORDERED: Sodium Chloride 0.9% 1,000 ML IV STA (19:21)
[2018-02-28 20:25] LABS: BASO # 0.01 K/mm3 (0.0-2.0); BASO % 0.1 % (0.0-3.0); EOS # 0.1 (0.0-0.7); EOS % 0.4 % (1.5-5.0); GRAN # 13.18 (1.4-6.5); GRAN % 87.3 % (50.0-68.0); HEMOGLOBIN 10.5 g/dL (12.0-16.0); LYMPH # 1.1 (1.2-3.4); LYMPH % 7.5 % (22.0-35.0); MEAN CELL VOLUME 73.4 fl (80.0-105.0); MEAN CORPUSCULAR HEMOGLOBIN 22.7 pg (25.0-35.0); MEAN CORPUSCULAR HGB CONC 30.9 g/dl (31.0-37.0); MEAN PLATELET VOLUME 10.1 fl (7.0-11.0); MONO # 0.7 (0.1-0.6); MONO % 4.7 % (1.0-6.0); RBC 4.63 10^6/uL (3.5-6.1); RED CELL DISTRIBUTION WIDTH 16.1 % (11.5-14.5); WHITE BLOOD COUNT 15.1 10^3/uL (4.5-11.0)
--- NOTE | 2018-02-28 20:25 | ED PDOC ---
Arrival/HPI - General Chief Complaint: Abdominal Pain Time Seen by Provider: 02/28/18 19:21 Historian: Patient - History of Present Illness Narrative History of Present Illness (Text): 02/28/18 20:21 37yo female with no pmhx who present with complaint of pelvic abdominal pain with associated nausea and vomiting since this morning. Reports history of same symptoms usually with her period. States her Period started yesterday. She saw her SAP TECHNICAL DEVELOPER for these symptoms in the past and after many test was told everything was negative. She states pain is better than what it was earlier. States she took 800mg of Ibuprofen at 1700. She denies dysuria, fever, chills, back pain, dizziness, diarrhea, constipation, sick contact any other complaint Past Medical History - Provider Review Nursing Documentation Reviewed: Yes - Infectious Disease Hx of Infectious Diseases: None - Tetanus Immunization Tetanus Immunization: Unknown - Reproductive Menopause: No - Cardiac Hx Cardiac Disorders: Yes Hx Hypertension: Yes - Pulmonary Hx Respiratory Disorders: No - Neurological Hx Neurological Disorder: No - HEENT Hx HEENT Disorder: No - Renal Hx Renal Disorder: No - Endocrine/Metabolic Hx Endocrine Disorders: No - Hematological/Oncological Hx Blood Disorders: No - Integumentary Hx Dermatological Disorder: No - Musculoskeletal/Rheumatological Hx Musculoskeletal Disorders: No - Gastrointestinal Hx Gastrointestinal Disorders: Yes Hx Gastritis: Yes Hx Gastroesophageal Reflux: Yes - Genitourinary/Gynecological Hx Genitourinary Disorders: No - Psychiatric Hx Psychophysiologic Disorder: No Hx Depression: No Hx Emotional Abuse: No Hx Physical Abuse: No Hx Substance Use: No - Past Surgical History Past Surgical History: No Previous - Anesthesia Hx Anesthesia: No - Suicidal Assessment Feels Threatened In Home Enviroment: No Family/Social History - Physician Review Nursing Documentation Reviewed: Yes Family/Social History: Unknown Family HX Smoking Status: Never Smoked Hx Alcohol Use: No Hx Substance Use: No Hx Substance Use Treatment: No Allergies/Home Meds Allergies/Adverse Reactions: Allergies No Known Allergies Allergy (Verified 08/26/16 01:10) Review of Systems - Physician Review All systems were reviewed & negative as marked: Yes - Review of Systems Constitutional: Normal Eyes: Normal ENT: Normal Respiratory: Normal Cardiovascular: Normal Gastrointestinal: Abdominal Pain, Nausea, Vomiting. absent: Constipation, D iarrhea, Hematemesis Genitourinary Female: Normal Musculoskeletal: Normal Skin: Normal Neurological: Normal Endocrine: Normal Hemo/Lymphatic: Normal Psychiatric: Normal Physical Exam Vital Signs Reviewed: Yes Vital Signs Temp Pulse Resp BP Pulse Ox 02/28/18 18:45 99.1 F 91 H 18 129/82 100 Temperature: Afebrile Blood Pressure: Normal Pulse: Regular Respiratory Rate: Normal Appearance: Positive for: Well-Appearing, Non-Toxic, Comfortable Pain Distress: None Mental Status: Positive for: Alert and Oriented X 3 - Systems Exam Head: Present: Atraumatic, Normocephalic Pupils: Present: PERRL Extroacular Muscles: Present: EOMI Conjunctiva: Present: Normal Mouth: Present: Moist Mucous Membranes Neck: Present: Normal Range of Motion Respiratory/Chest: Present: Clear to Auscultation, Good Air Exchange. No: Respiratory Distress, Accessory Muscle Use Cardiovascular: Present: Regular Rate and Rhythm, Normal S1, S2. No: Murmurs Abdomen: Present: Tenderness (Pelvic tenderness), Normal Bowel Sounds, Guarding (Voluntary), Other (Soft). No: Distention, Peritoneal Signs, Rebound, McBurney's Point Tender, Rovsing's Sign Present Back: Present: Normal Inspection Upper Extremity: Present: Normal Inspection. No: Cyanosis, Edema Lower Extremity: Present: Normal Inspection. No: Edema Neurological: Present: GCS=15, CN II-XII Intact, Speech Normal Skin: Present: Warm, Dry, Normal Color. No: Rashes Psychiatric: Present: Alert, Oriented x 3, Normal Insight, Normal Concentration Medical Decision Making ED Course and Treatment: 02/28/18 22:30 Pt presented for stated history. She noted that she took analgesic MASTER TECHNICIAN and her pain improved s/p. Labs Pelvic Us Zofran, 1L Ns Leukocytosis and UTI was noted on review of her labs. Rocephin was started and Toradol was also ordered Pt notes much better relieve with her pain s/p. PELVIC US Measures 7.83 x 3.49 x 4.85 cm. Normal in size and appearance. No fibroid or other mass lesion seen. Endometrium Measures 4.8 mm in diameter. Unremarkable. Cervix No cervical abnormality identified. Nabothian cyst measures 0.82 x 0.39 cm. Right ovary Measures 2.19 x 2.15 x 2.17 cm. No solid mass. Normal flow. Simple cyst measures 0.96 x 0.48 x 1.26 cm. Left ovary Measures 3.89 x 2.66 x 2.84 cm. No solid mass. Normal flow. Free fluid No significant free fluid noted. Other Findings None. Impression 1. Nabothian cyst. 2. Simple 1.3 cm right ovarian cyst. 02/28/18 23:07 All result was DW the pt. She was DC home with keflex. Advised to f/u with her SAP TECHNICAL DEVELOPER and take Ibuprofen every 6hrs as needed for pain TRT ED for any new or worsening symptoms - RAD Interpretation Radiology Orders: 02/28/18 19:22 PELVIS ULTRASOUND [US] Routine - Medication Orders Current Medication Orders: Discontinued Medications Sodium Chloride (Sodium Chloride 0.9%) 1,000 mls @ 1,000 mls/hr IV .Q1H STA Stop: 02/28/18 20:20 Last Admin: 02/28/18 20:07 Dose: 1,000 mls/hr eMAR Start Stop Document 02/28/18 20:07 EQ (Rec: 02/28/18 20:07 EQ [id number]) Intravenous Solution Start Date 02/28/18 Start Time 20:07 Ondansetron HCl (Zofran Inj) 4 mg IVP STAT STA Stop: 02/28/18 19:22 Last Admin: 02/28/18 20:07 Dose: 4 mg IVP Administration Document 02/28/18 20:07 EQ (Rec: 02/28/18 20:07 EQ [id number] Charges for Administration # of IVP Administrations 1 Disposition/Present on Arrival - Present on Arrival Any Indicators Present on Arrival: No History of DVT/PE: No History of Uncontrolled Diabetes: No Urinary Catheter: No History of Decub. Ulcer: No History Surgical Site Infection Following: None - Disposition Have Diagnosis and Disposition been Completed?: Yes Diagnosis: UTI (urinary tract infection), Dysmenorrhea Disposition: HOME/ ROUTINE Disposition Time: 22:30 Patient Plan: Discharge Patient Problems: Current Active Problems Problem Status Onset Dysmenorrhea Acute UTI (urinary tract infection) Acute Condition: STABLE Discharge Instructions (ExitCare): Urinary Tract Infections in Adults, Painful Periods, Menstrual Cramps (DC) Additional Instructions: Follow up with your SAP TECHNICAL DEVELOPER Return to ED for any worsening symptoms Prescriptions: Cephalexin [Keflex] 500 mg PO TID #21 capsule Referrals: Andrews Sloan MD [Primary Care Provider] - Follow up with primary Adam Estes MD [Staff Provider] - Follow up with primary Forms: [email or web address] (Salvadorean)
[2018-02-28 20:31] LABS: INR 1.19; PARTIAL THROMBOPLASTIN TIME 38.4 Seconds (25.1-36.5); PROTHROMBIN TIME 13.6 SECONDS (9.4-12.5)
[2018-02-28 20:32] LABS: ALB/GLOB RATIO 1.1 (1.1-1.8); ALBUMIN 4.3 g/dL (3.0-4.8); ALT/SGPT 24 U/L (7-56); AST/SGOT 20 U/L (14-36); BLOOD UREA NITROGEN 14 mg/dL (7-21); GFR NON-AFRICAN AMERICAN > 60; LIPASE 65 U/L (23-300)
[2018-02-28 20:44] LABS: URINE APPEARANCE BLOODY (CLEAR); URINE BILIRUBIN SMALL (NEGATIVE); URINE BLOOD LARGE (NEGATIVE); URINE COLOR RED (YELLOW); URINE GLUCOSE (UA) NEGATIVE (NEGATIVE); URINE LEUKOCYTE ESTERASE SMALL Leu/uL (NEGATIVE); URINE PROTEIN >=300 mg/dL (<30 mg/dL); URINE UROBILINOGEN 0.2 E.U./dL (<1 E.U./dL)
[2018-02-28 20:45] LABS: URINE BACTERIA SMALL (NEG); URINE RBC TNTC /hpf (0-2)
[2018-02-28] MEDS ORDERED: cefTRIAXone 1 gm 1 GM/100 ML BAG IVPB STA (22:28)
[2018-03-01 00:54] VITALS: BP 130/74; PULSE 85; TEMP 98.9
--- NOTE | 2018-03-01 11:11 | US ---
Date of service: 02/28/2018 HISTORY: Pelvic pain LMP current. COMPARISON: 10/05/2014. TECHNIQUE: Transabdominal only. Real-time technique with 2D, duplex and color Doppler FINDINGS: UTERUS: Measures 3.5 x 7.8 cm. Normal in size and appearance. No fibroid or other mass lesion seen. ENDOMETRIUM: Measures 4.8 mm in diameter. No ultrasound findings to suggest gestational sac, fluid, debris, mass or polyp or other pathologic process within the endometrium. CERVIX: No cervical abnormality identified.Incidental finding: Nabothian cysts the largest measures 4 x 8 mm RIGHT OVARY: Measures 2.2 x 2.2 x 2.2 cm. No solid mass. Normal flow. Multiple subcentimeter follicles. LEFT OVARY: Measures 0.7 x 2.8 x 3.9 cm. No solid mass. Normal flow. FREE FLUID: No significant free fluid noted. OTHER FINDINGS: None. IMPRESSION: Unremarkable pelvic ultrasound.
== END 2018-02-28 23:25 | disposition home or self-care (01) ==
LOC: ED 18:19
DX: N39.0 Urinary tract infection, site not specified (principal); N94.6 Dysmenorrhea, unspecified; I10 Essential (primary) hypertension
CPT/HCPCS: 76856; 80053; 81001; 83690; 83735; 85025; 85610; 85730; 87086; 96374; 96375; 99283; J1885; J2405; J7030